=== PATIENT | male | born 1970 | race Caucasian/White ===

== ENCOUNTER 2018-01-26 19:51 | Emergency (ER) | payer SELFPAY ==
[~2018-01-26] VITALS: Ht 180.3 cm; Wt 75.1 kg
[2018-01-26] MEDS ORDERED: MEDROL DOSEPAK4 MG PO (22:03)
[2018-01-26] MEDS ORDERED: NORCO 5/3251 TABLET PO (22:03)
[2018-01-26] MEDS ORDERED: FLEXERIL10 MG PO (22:03)
[2018-01-26 22:16] VITALS: BP 136/92
== END 2018-01-26 22:18 | disposition home or self-care (01) ==
LOC: EME 19:51
DX: M54.12 Radiculopathy, cervical region (principal); F17.200 Nicotine dependence, unspecified, uncomplicated; Z88.0 Allergy status to penicillin
CPT/HCPCS: 99281; 99284; J7512